=== PATIENT | female | born 1960 | race Two or more races ===

== ENCOUNTER 2022-07-20 07:57 | Emergency (ER) | payer MEDICAID, OTHER ==
[~2022-07-20] VITALS: Ht 157.5 cm; Wt 72.1 kg
[2022-07-20 08:36] VITALS: BP 174/80
[2022-07-20 09:03] LABS: Urine Bacteria NONE SEEN /hpf (None Seen); Urine Blood Negative /uL (Negative); Urine Mucus FEW (None Seen); Urine Specific Gravity 1.021 (1.001-1.035); Urine WBC 1 /hpf (0 - 5)
[2022-07-20] MEDS ORDERED: CEPH-510 PO (09:15)
== END 2022-07-20 09:26 | disposition home or self-care (01) ==
LOC: ER 07:57
DX: N89.8 Other specified noninflammatory disorders of vagina (principal); R82.998 Other abnormal findings in urine
CPT/HCPCS: 81001

== ENCOUNTER 2022-08-08 22:21 | Emergency (ER) | payer MEDICAID ==
[~2022-08-08] VITALS: Ht 157.5 cm; Wt 72.2 kg
[~2022-08-08 22:21] MED LIST: CEPH-510 PO
[2022-08-09 01:35] LABS: Urine Bacteria FEW /hpf (None Seen); Urine Blood Negative /uL (Negative); Urine Mucus FEW (None Seen); Urine Specific Gravity 1.032 (1.001-1.035); Urine WBC 8 /hpf (0 - 5)
[2022-08-09] MEDS ORDERED: METR500T14 PO (01:42)
[2022-08-09] MEDS ORDERED: NITR-87 PO (01:42)
[2022-08-09 02:06] VITALS: BP 175/72
== END 2022-08-09 02:10 | disposition home or self-care (01) ==
LOC: ER 22:21
DX: N76.0 Acute vaginitis (principal); N39.0 Urinary tract infection, site not specified
CPT/HCPCS: 81001; 87210

== ENCOUNTER 2022-08-22 04:54 | Emergency (ER) | payer MEDICAID ==
[~2022-08-22] VITALS: Ht 157.5 cm; Wt 68.2 kg
[~2022-08-22 04:54] MED LIST changes: +METR500T14 PO; +NITR-87 PO
[2022-08-22 05:44] LABS: Basophils # (auto) 0.1 10 ^3/uL (0-0.2); Eosinophils # (auto) 0.1 10 ^3/uL (0-0.8); Monocytes # (auto) 0.6 10 ^3/uL (0-1.3)
[2022-08-22 05:46] LABS: Basophils % (auto) 1.4 % (0.0-2.0); Eosinophils % (auto) 0.7 % (0.0-7.0); Hematocrit 35.7 % (36.0-46.0); Lymphocytes % (auto) 22.9 % (10.0-50.0); Mean Corpuscular Hemoglobin 28.3 pg (28.0-32.0); Mean Corpuscular Hgb Conc. 33.7 g/dL (32.0-36.0); Mean Corpuscular Volume 83.9 fL (80.0-100.0); Monocytes % (auto) 6.6 % (0.0-12.0); Neutrophils % (auto) 68.4 % (37.0-80.0); Nucleated Red Blood Cells % 0.2 %; Red Blood Cells 4.26 10^6/uL (4.0-5.20); White Blood Cell 8.7 10^3/uL (4.4-10.8)
[2022-08-22 06:05] LABS: Albumin 3.5 g/dL (3.4-5.0); BUN/Creatinine Ratio 18.1; Bilirubin, Total 0.2 mg/dL (0.2-1.0); Calcium 8.9 mg/dL (8.5-10.1); Potassium 4.2 mmol/L (3.5-5.1); Total Protein 7.6 g/dL (6.4-8.2)
[2022-08-22 06:14] LABS: Red Cell Distribution Width 20.8 % (11.8-14.3)
[2022-08-22 06:30] LABS: Urine Bacteria FEW /hpf (None Seen); Urine Blood Negative /uL (Negative); Urine Hyaline Cast FEW /lpf (0 - 2); Urine Specific Gravity 1.024 (1.001-1.035); Urine WBC 2 /hpf (0 - 5)
[2022-08-22] MEDS ORDERED: MORPHINE SULFATE INJ 2 MG/ml SYRG IV ONE (06:45)
[2022-08-22] MEDS ORDERED: ONDANSETRON HCL 4 MG/2 ML VIAL IV ONE (06:45)
[2022-08-22 12:00] VITALS: BP 163/83
== END 2022-08-22 13:16 | disposition home or self-care (01) ==
LOC: ER 04:54
DX: K76.0 Fatty (change of) liver, not elsewhere classified (principal); I77.4 Celiac artery compression syndrome; E11.9 Type 2 diabetes mellitus without complications; Z98.890 Other specified postprocedural states
CPT/HCPCS: 36415; 71260; 74177; 76705; 80053; 81001; 83690; 85025; 96374; 96375; 99285; J2270; J2405

== ENCOUNTER 2022-08-25 19:32 | Emergency (ER) | payer MEDICAID ==
[~2022-08-25] VITALS: Ht 157.5 cm; Wt 68.2 kg
[2022-08-25 21:46] LABS: Basophils # (auto) 0.2 10 ^3/uL (0-0.2); Basophils % (auto) 1.8 % (0.0-2.0); Eosinophils # (auto) 0.1 10 ^3/uL (0-0.8); Eosinophils % (auto) 0.6 % (0.0-7.0); Hematocrit 38.5 % (36.0-46.0); Hemoglobin 12.7 g/dL (12.2-16.2); Lymphocytes % (auto) 21.3 % (10.0-50.0); Mean Corpuscular Hemoglobin 27.4 pg (28.0-32.0); Mean Corpuscular Hgb Conc. 32.9 g/dL (32.0-36.0); Mean Corpuscular Volume 83.3 fL (80.0-100.0); Monocytes # (auto) 0.7 10 ^3/uL (0-1.3); Monocytes % (auto) 7.5 % (0.0-12.0); Neutrophils # (auto) 6.5 10 ^3/uL (1.6-8.6); Neutrophils % (auto) 68.8 % (37.0-80.0); Nucleated Red Blood Cells % 0.3 %; Red Blood Cells 4.62 10^6/uL (4.0-5.20); White Blood Cell 9.5 10^3/uL (4.4-10.8)
[2022-08-25 21:47] LABS: Red Cell Distribution Width 20.6 % (11.8-14.3)
[2022-08-25 22:22] LABS: Calcium 9.3 mg/dL (8.5-10.1); Potassium 4.1 mmol/L (3.5-5.1)
[2022-08-25 22:27] LABS: BUN/Creatinine Ratio 31.9; Bilirubin, Total 0.3 mg/dL (0.2-1.0); Total Protein 8.6 g/dL (6.4-8.2)
[2022-08-26 00:05] LABS: Urine Bacteria FEW /hpf (None Seen); Urine Blood Negative /uL (Negative); Urine Mucus FEW (None Seen); Urine Specific Gravity 1.037 (1.001-1.035); Urine WBC 7 /hpf (0 - 5)
[2022-08-26] MEDS ORDERED: cefTRIAXone SOD 500 MG VL IM ONE (00:30)
[2022-08-26] MEDS ORDERED: AZITHROMYCIN 250 MG TAB PO ONE (00:30)
[2022-08-26] MEDS ORDERED: METR500T14 PO (00:33)
[2022-08-26] MEDS ORDERED: FLUC150T38 PO (00:35)
[2022-08-26 01:18] VITALS: BP 123/75
== END 2022-08-26 01:24 | disposition home or self-care (01) ==
LOC: ER 19:35
DX: N39.0 Urinary tract infection, site not specified (principal); N76.0 Acute vaginitis
CPT/HCPCS: 36415; 74176; 80053; 81001; 83690; 85025; 93005; 96372; 99285; J0696

== ENCOUNTER 2022-10-01 22:08 | Emergency (ER) | payer MEDICAID ==
[~2022-10-01] VITALS: Ht 157.5 cm; Wt 68.0 kg
[~2022-10-01 22:08] MED LIST changes: +FLUC150T38 PO
[2022-10-01 23:33] LABS: Urine Bacteria FEW /hpf (None Seen); Urine Blood Negative /uL (Negative); Urine Mucus FEW (None Seen); Urine Specific Gravity 1.027 (1.001-1.035); Urine WBC 8 /hpf (0 - 5)
[2022-10-02 00:07] LABS: Basophils # (auto) 0.1 10 ^3/uL (0-0.2); Basophils % (auto) 1.3 % (0.0-2.0); Eosinophils # (auto) 0 10 ^3/uL (0-0.8); Eosinophils % (auto) 0.5 % (0.0-7.0); Hematocrit 33.3 % (36.0-46.0); Hemoglobin 11.2 g/dL (12.2-16.2); Lymphocytes # (auto) 1.7 10 ^3/uL (0.4-5.4); Lymphocytes % (auto) 17.4 % (10.0-50.0); Mean Corpuscular Hemoglobin 28.1 pg (28.0-32.0); Mean Corpuscular Hgb Conc. 33.8 g/dL (32.0-36.0); Mean Corpuscular Volume 83.1 fL (80.0-100.0); Monocytes # (auto) 0.6 10 ^3/uL (0-1.3); Monocytes % (auto) 6.2 % (0.0-12.0); Neutrophils # (auto) 7.1 10 ^3/uL (1.6-8.6); Neutrophils % (auto) 74.6 % (37.0-80.0); Nucleated Red Blood Cells % 0.1 %; Red Cell Distribution Width 20.4 % (11.8-14.3); White Blood Cell 9.5 10^3/uL (4.4-10.8)
[2022-10-02 00:30] LABS: Albumin 3.4 g/dL (3.4-5.0); BUN/Creatinine Ratio 33.3 (10.0-20.0); Calcium 8.9 mg/dL (8.5-10.1); Potassium 3.5 mmol/L (3.5-5.1)
[2022-10-02 00:39] LABS: Bilirubin, Total 0.4 mg/dL (0.2-1.0)
[2022-10-02] MEDS ORDERED: AZITHROMYCIN 250 MG TAB PO ONE (01:15)
[2022-10-02] MEDS ORDERED: metroNIDAZOLE 500 MG TAB PO ONE (01:15)
[2022-10-02] MEDS ORDERED: cefTRIAXone SOD 1,000 MG VL IM ONE (01:15)
[2022-10-02] MEDS ORDERED: HYDROcodone-ACET 10/325MG TAB PO ONE (03:00)
[2022-10-02] MEDS ORDERED: DOXY-340 PO (04:25)
[2022-10-02] MEDS ORDERED: METR500T PO (04:25)
[2022-10-02 04:40] VITALS: BP 168/90
== END 2022-10-02 04:45 | disposition home or self-care (01) ==
LOC: ER 22:08
DX: N76.0 Acute vaginitis (principal); B96.89 Other specified bacterial agents as the cause of diseases classified elsewhere; N39.0 Urinary tract infection, site not specified; D64.9 Anemia, unspecified; E11.65 Type 2 diabetes mellitus with hyperglycemia; Z90.89 Acquired absence of other organs; Z79.899 Other long term (current) drug therapy
CPT/HCPCS: 36415; 80053; 81001; 85025; 96372; 99284; J0696

== ENCOUNTER 2022-11-03 20:12 | Emergency (ER) | payer MEDICAID ==
[~2022-11-03] VITALS: Ht 157.5 cm; Wt 68.1 kg
[~2022-11-03 20:12] MED LIST changes: +DOXY-340 PO; +METR500T PO
[2022-11-03 22:45] LABS: Urine Bacteria FEW /hpf (None Seen); Urine Blood Negative /uL (Negative); Urine Specific Gravity 1.025 (1.001-1.035); Urine WBC 3 /hpf (0 - 5)
[2022-11-04] MEDS ORDERED: SULF800T7 PO (00:11)
[2022-11-04 01:57] VITALS: BP 157/97
== END 2022-11-04 00:34 | disposition home or self-care (01) ==
LOC: ER 20:17
DX: N39.0 Urinary tract infection, site not specified (principal); E11.9 Type 2 diabetes mellitus without complications; Z88.6 Allergy status to analgesic agent; Z88.8 Allergy status to other drugs, medicaments and biological substances
CPT/HCPCS: 81001

== ENCOUNTER 2022-12-01 22:06 | Inpatient (IN) | payer MEDICAID ==
[~2022-12-01] VITALS: Ht 157.5 cm; Wt 70.8 kg
[~2022-12-01 22:06] MED LIST changes: -DOXY-340 PO; +DOXY1CAP57 PO; +METR-344 PO; -METR500T14 PO; +SULF800T23 PO
[2022-12-01 23:06] LABS: Basophils # (auto) 0.1 10 ^3/uL (0-0.2); Basophils % (auto) 0.7 % (0.0-2.0); Nucleated Red Blood Cells % 0.1 %
[2022-12-01 23:08] LABS: Eosinophils # (auto) 0 10 ^3/uL (0-0.8); Eosinophils % (auto) 0.3 % (0.0-7.0); Hematocrit 35.9 % (36.0-46.0); Hemoglobin 11.6 g/dL (12.2-16.2); Lymphocytes # (auto) 1.6 10 ^3/uL (0.4-5.4); Lymphocytes % (auto) 11.4 % (10.0-50.0); Mean Corpuscular Hemoglobin 27.2 pg (28.0-32.0); Mean Corpuscular Hgb Conc. 32.3 g/dL (32.0-36.0); Mean Corpuscular Volume 84.1 fL (80.0-100.0); Monocytes # (auto) 0.8 10 ^3/uL (0-1.3); Neutrophils # (auto) 11.5 10 ^3/uL (1.6-8.6); Neutrophils % (auto) 81.6 % (37.0-80.0); Red Blood Cells 4.27 10^6/uL (4.0-5.20)
[2022-12-01 23:11] LABS: Red Cell Distribution Width 20.9 % (11.8-14.3)
[2022-12-01 23:21] LABS: Alanine Aminotransferase 21 U/L (13-56); Albumin 3.4 g/dL (3.4-5.0); Anion Gap 10 (5-15); Aspartate Aminotransferase 20 U/L (15-37); BUN/Creatinine Ratio 19.6 (10.0-20.0); Blood Alcohol < 3.0 mg/dL (0-5); Blood Urea Nitrogen 19 mg/dL (7-18); Calcium 8.5 mg/dL (8.5-10.1); Carbon Dioxide 26 mmol/L (21-32); Chloride 100 mmol/L (98-107); GFR African American 75 mL/min; GFR Non-African American 62 mL/min; Glucose 290 mg/dL (74-106); INR 1.03 (0.9-1.15); Magnesium 1.8 mg/dL (1.6-2.6); Partial Thromboplastin Time 32.4 sec (24.6-33.4); Potassium 4.1 mmol/L (3.5-5.1); Sodium 136 mmol/L (136-145)
[2022-12-01 23:24] LABS: Alkaline Phosphatase 89 U/L (45-117); Bilirubin, Total 0.4 mg/dL (0.2-1.0); Lactic Acid w/Reflex 2.6 mmol/L (0.4-2.0); Total Protein 7.7 g/dL (6.4-8.2)
[2022-12-02] MEDS ORDERED: PIPERACILLIN-TAZOB 3.375GM 100 ML IV ONE (03:45)
[2022-12-02] MEDS ORDERED: cloNIDine HCL 0.1 MG TAB PO ONE (03:45)
[2022-12-02] MEDS ORDERED: LACTATED RINGER'S 2,050 ML IV ONE (03:45)
[2022-12-02] MEDS ORDERED: HYDROcodone-ACET 5/325MG TAB PO PRN (04:15)
[2022-12-02] MEDS ORDERED: ACETAMINOPHEN 325 MG TAB PO PRN (04:15)
[2022-12-02] MEDS ORDERED: DOCUSATE SOD 100 MG CAP PO PRN (04:15)
[2022-12-02] MEDS ORDERED: MORPHINE SULFATE INJ 2 MG/ml SYRG IV PRN (04:15)
[2022-12-02] MEDS ORDERED: DEXTROSE (50%) 50ML SYRG IV PRN (04:15)
[2022-12-02] MEDS ORDERED: ONDANSETRON HCL 4 MG/2 ML VIAL IV PRN (04:15)
[2022-12-02] MEDS ORDERED: NITROGLYCERIN 0.4 MG SL TAB SL PRN (04:15)
[2022-12-02] MEDS ORDERED: SODIUM CHLORIDE 0.9% 500 ML IV ONE (04:45)
[2022-12-02] MEDS ORDERED: FLEET ENEMA(ADULT) 135 ML PR ONE (05:15)
[2022-12-02 07:02] LABS: Urine Bacteria FEW /hpf (None Seen); Urine Blood Negative /uL (Negative); Urine Specific Gravity 1.015 (1.001-1.035); Urine WBC 37 /hpf (0 - 5)
[2022-12-02] MEDS: SODIUM CHLORIDE 0.9% 1,000 ML IV SCH ×2 (07:08→20:52)
[2022-12-02] MEDS: InsuLIN REG 1unit/0.01ml Soln (100units/ml) SC SCH ×4 (08:00→20:00)
[2022-12-02] MEDS: ACCU-CHEK COMFORT CURVE STRIP VI SCH ×4 (08:00→20:43)
[2022-12-02 08:06] LABS: Basophils # (auto) 0.1 10 ^3/uL (0-0.2); Basophils % (auto) 0.9 % (0.0-2.0); Eosinophils # (auto) 0 10 ^3/uL (0-0.8); Eosinophils % (auto) 0.3 % (0.0-7.0); Hematocrit 30.9 % (36.0-46.0); Hemoglobin 10.1 g/dL (12.2-16.2); Lymphocytes # (auto) 1.6 10 ^3/uL (0.4-5.4); Lymphocytes % (auto) 14.9 % (10.0-50.0); Mean Corpuscular Hemoglobin 27.3 pg (28.0-32.0); Mean Corpuscular Hgb Conc. 32.8 g/dL (32.0-36.0); Mean Corpuscular Volume 83.1 fL (80.0-100.0); Monocytes # (auto) 0.7 10 ^3/uL (0-1.3); Neutrophils % (auto) 76.9 % (37.0-80.0); Red Blood Cells 3.71 10^6/uL (4.0-5.20); White Blood Cell 10.4 10^3/uL (4.4-10.8)
[2022-12-02 08:08] LABS: Red Cell Distribution Width 20.6 % (11.8-14.3)
[2022-12-02 08:12] LABS: Albumin 2.8 g/dL (3.4-5.0); Calcium 7.9 mg/dL (8.5-10.1); Potassium 3.6 mmol/L (3.5-5.1)
[2022-12-02 08:16] LABS: BUN/Creatinine Ratio 18.3 (10.0-20.0); Bilirubin, Total 0.4 mg/dL (0.2-1.0); Total Protein 6.6 g/dL (6.4-8.2)
[2022-12-02] MEDS ORDERED: LORazepam 2MG/ML-1ML VIAL IV PRN (09:30)
[2022-12-02] MEDS ORDERED: ENOXAPARIN SOD 40 MG/0.4 ML SYRINGE SC SCH (10:00)
[2022-12-02 10:08] LABS: % Iron Saturation 27.1 % (15-50)
[2022-12-02] MEDS: amLODIPine BESYLATE 5 MG TAB PO SCH (11:13)
[2022-12-02] MEDS ORDERED: PIPERACILLIN-TAZOB 3.375GM 100 ML IV SCH (12:00)
[2022-12-02] MEDS ORDERED: cefTRIAXone 1GM/50ML D5W 50 ML IV ONE (16:30)
[2022-12-03] MEDS: ACCU-CHEK COMFORT CURVE STRIP VI SCH ×7 (00:14→23:31)
[2022-12-03] MEDS: InsuLIN REG 1unit/0.01ml Soln (100units/ml) SC SCH ×7 (04:00→23:40)
[2022-12-03 05:46] LABS: Basophils # (auto) 0.1 10 ^3/uL (0-0.2); Basophils % (auto) 1.1 % (0.0-2.0); Eosinophils # (auto) 0.1 10 ^3/uL (0-0.8); Nucleated Red Blood Cells % 0.2 %
[2022-12-03 05:49] LABS: Eosinophils % (auto) 0.7 % (0.0-7.0); Hematocrit 31.5 % (36.0-46.0); Hemoglobin 10.7 g/dL (12.2-16.2); Lymphocytes % (auto) 23.4 % (10.0-50.0); Mean Corpuscular Hemoglobin 27.9 pg (28.0-32.0); Mean Corpuscular Hgb Conc. 33.8 g/dL (32.0-36.0); Mean Corpuscular Volume 82.6 fL (80.0-100.0); Monocytes # (auto) 0.7 10 ^3/uL (0-1.3); Monocytes % (auto) 7.5 % (0.0-12.0); Neutrophils # (auto) 5.9 10 ^3/uL (1.6-8.6); Neutrophils % (auto) 67.3 % (37.0-80.0); Red Blood Cells 3.81 10^6/uL (4.0-5.20); White Blood Cell 8.7 10^3/uL (4.4-10.8)
[2022-12-03 06:04] LABS: Red Cell Distribution Width 20.8 % (11.8-14.3)
[2022-12-03 06:15] LABS: Potassium 3.6 mmol/L (3.5-5.1)
[2022-12-03 06:27] LABS: Albumin 2.9 g/dL (3.4-5.0); BUN/Creatinine Ratio 22.1 (10.0-20.0); Bilirubin, Total 0.5 mg/dL (0.2-1.0); Calcium 8.5 mg/dL (8.5-10.1); Total Protein 6.9 g/dL (6.4-8.2)
[2022-12-03] MEDS: cefTRIAXone 1GM/50ML D5W 50 ML IV SCH (08:45)
[2022-12-03] MEDS: amLODIPine BESYLATE 5 MG TAB PO SCH (08:45)
[2022-12-03] MEDS: SODIUM CHLORIDE 0.9% 1,000 ML IV SCH (13:51)
[2022-12-03 21:02] VITALS: BP 172/74
[2022-12-03] MEDS: hydrALAZINE HCL 20 MG/ML VL IV PRN (21:17)
[2022-12-03 22:00] VITALS: BP 174/72
[2022-12-04] MEDS: ACCU-CHEK COMFORT CURVE STRIP VI SCH ×5 (04:17→19:34)
[2022-12-04] MEDS: InsuLIN REG 1unit/0.01ml Soln (100units/ml) SC SCH ×5 (04:19→19:41)
[2022-12-04 05:00] VITALS: BP 152/68
[2022-12-04] MEDS: SUCRALFATE 1 GM/10 ML ORAL SUSP PO SCH ×2 (06:16→18:40)
[2022-12-04] MEDS: SODIUM CHLORIDE 0.9% 1,000 ML IV SCH ×2 (06:16→22:05)
[2022-12-04] MEDS: cefTRIAXone 1GM/50ML D5W 50 ML IV SCH (08:38)
[2022-12-04] MEDS: PANTOPRAZOLE 40 MG/10 ML VIAL INJ IV SCH ×2 (08:38→19:39)
[2022-12-04] MEDS: amLODIPine BESYLATE 5 MG TAB PO SCH (08:42)
[2022-12-04 09:48] VITALS: BP 134/74
[2022-12-04 12:53] VITALS: BP 164/73
[2022-12-04] MEDS ORDERED: MIDAZOLAM HCL 2MG/2ML 2ml VIAL (1mg/ml) ONE (15:15)
[2022-12-04] MEDS ORDERED: ONDANSETRON HCL 4 MG/2 ML VIAL IV PRN (15:30)
[2022-12-04 16:58] VITALS: BP 149/71
[2022-12-04] MEDS ORDERED: PROPOFOL 10 MG/ML 20 ML IV ONE (17:01)
[2022-12-04 20:00] VITALS: BP 146/72
[2022-12-04 22:00] VITALS: BP 164/81
[2022-12-04] MEDS: hydrALAZINE HCL 20 MG/ML VL IV PRN (22:03)
[2022-12-05 05:00] VITALS: BP 148/66
[2022-12-05] MEDS: SUCRALFATE 1 GM/10 ML ORAL SUSP PO SCH ×2 (05:23→18:17)
[2022-12-05] MEDS: ACCU-CHEK COMFORT CURVE STRIP VI SCH ×5 (05:25→16:00)
[2022-12-05] MEDS: InsuLIN REG 1unit/0.01ml Soln (100units/ml) SC SCH ×4 (05:33→16:00)
[2022-12-05 09:00] VITALS: BP 139/49
[2022-12-05] MEDS: PANTOPRAZOLE 40 MG/10 ML VIAL INJ IV SCH (09:17)
[2022-12-05] MEDS: cefTRIAXone 1GM/50ML D5W 50 ML IV SCH (09:17)
[2022-12-05] MEDS: amLODIPine BESYLATE 5 MG TAB PO SCH (09:17)
[2022-12-05] MEDS ORDERED: PANT40TA2 PO (10:43)
[2022-12-05] MEDS ORDERED: AML5T PO (10:43)
[2022-12-05] MEDS ORDERED: LEVO500T91 PO (10:44)
[2022-12-05 12:47] VITALS: BP 145/63
[2022-12-05 15:10] VITALS: BP 139/49
[2022-12-05] MEDS: SODIUM CHLORIDE 0.9% 1,000 ML IV SCH (15:35)
[2022-12-05 16:43] VITALS: BP 126/78
== END 2022-12-05 22:00 | disposition home or self-care (01) | DRG 241 ==
LOC: ER 22:06 → TELE 12-02 04:22 → TELE-WESTW 12-03 20:54
PROVIDERS: ADMIT Nurse Practitioner Family; ATTEND Internal Medicine
PROC: 0DB68ZX Excision of Stomach, Via Natural or Artificial Opening Endoscopic, Diagnostic (ICD-10-PCS; 2022-12-04)
PROC: 0DB98ZX Excision of Duodenum, Via Natural or Artificial Opening Endoscopic, Diagnostic (ICD-10-PCS; principal; 2022-12-04 15:03)
DX: K29.90 Gastroduodenitis, unspecified, without bleeding (principal); G93.41 Metabolic encephalopathy; E87.20 Acidosis, unspecified; D75.839 Thrombocytosis, unspecified; E11.65 Type 2 diabetes mellitus with hyperglycemia; D64.9 Anemia, unspecified; E86.0 Dehydration; N39.0 Urinary tract infection, site not specified; I16.0 Hypertensive urgency; R26.81 Unsteadiness on feet; R19.5 Other fecal abnormalities; K44.9 Diaphragmatic hernia without obstruction or gangrene; Z79.899 Other long term (current) drug therapy; Z82.49 Family history of ischemic heart disease and other diseases of the circulatory system; Z83.3 Family history of diabetes mellitus
CPT/HCPCS: 36415; 70450; 70551; 71045; 76700; 80053; 80320; 81001; 82010; 82962; 83036; 83540; 83550; 83605; 83735; 84484; 85025; 85610; 85730; 87040; 87086; 93005; 95819; 96365; 97110; 97116; 97163; 99291; C9113; G0378; J0696; J1815; J2250; J2543; J2704

== ENCOUNTER 2023-02-05 15:39 | Inpatient (IN) | payer MEDICAID ==
[~2023-02-05] VITALS: Ht 157.5 cm; Wt 88.8 kg
[~2023-02-05 15:39] MED LIST changes: +AML5T PO; -CEPH-510 PO; -DOXY1CAP57 PO; -FLUC150T38 PO; +LEVO500T91 PO; -METR-344 PO; -METR500T PO; -NITR-87 PO; +PANT40TA2 PO; -SULF800T23 PO
[2023-02-05] MEDS ORDERED: SODIUM CHLORIDE 0.9% 1,000 ML IV ONE (16:15)
[2023-02-05] MEDS ORDERED: ONDANSETRON HCL 4 MG/2 ML VIAL IV PRN (18:45)
[2023-02-05] MEDS ORDERED: DOCUSATE SOD 100 MG CAP PO PRN (18:45)
[2023-02-05 19:05] LABS: Chloride 106 mmol/L (98-107); Potassium 4.8 mmol/L (3.5-5.1); Sodium 141 mmol/L (136-145)
[2023-02-05 19:09] LABS: Calcium 9.9 mg/dL (8.5-10.1); Carbon Dioxide 23.5 mmol/L (20-30)
[2023-02-05 19:14] LABS: Alkaline Phosphatase 90 U/L (46-116); BUN/Creatinine Ratio 24.6 (10.0-20.0); Blood Urea Nitrogen 17 mg/dL (9-23); Glucose 108 mg/dL (74-106)
[2023-02-05 19:16] LABS: Alanine Aminotransferase 19 U/L (7-40); Albumin 4.8 g/dL (3.2-4.8); Aspartate Aminotransferase 25 U/L (13-40); Bilirubin, Total 0.5 mg/dL (0.2-1.0); Total Protein 8.3 g/dL (5.7-8.2)
[2023-02-05 19:21] LABS: Basophils # (auto) 0.1 10 ^3/uL (0-0.2); Basophils % (auto) 0.8 % (0.0-2.0); Eosinophils # (auto) 0 10 ^3/uL (0-0.8); Eosinophils % (auto) 0.4 % (0.0-7.0); Hematocrit 38.9 % (36.0-46.0); Hemoglobin 12.8 g/dL (12.2-16.2); Lymphocytes # (auto) 1.7 10 ^3/uL (0.4-5.4); Mean Corpuscular Hemoglobin 27.3 pg (28.0-32.0); Mean Corpuscular Hgb Conc. 32.9 g/dL (32.0-36.0); Monocytes # (auto) 0.7 10 ^3/uL (0-1.3); Monocytes % (auto) 8.4 % (0.0-12.0); Neutrophils # (auto) 6.1 10 ^3/uL (1.6-8.6); Neutrophils % (auto) 70.4 % (37.0-80.0); Nucleated Red Blood Cells % 0.1 %; Red Blood Cells 4.69 10^6/uL (4.0-5.20); White Blood Cell 8.6 10^3/uL (4.4-10.8)
[2023-02-05 19:22] LABS: Red Cell Distribution Width 20.7 % (11.8-14.3)
[2023-02-05 20:20] LABS: Urine Bacteria FEW /hpf (None Seen); Urine Blood Negative /uL (Negative); Urine Clarity HAZY (Clear); Urine Color Colorless (Yellow); Urine Protein, UAD TRACE (Negative); Urine Specific Gravity 1.014 (1.001-1.035); Urine Urobilinogen Normal (Negative); Urine WBC 10 /hpf (0 - 5); Urine pH 6.5 (5.0-8.0)
[2023-02-05 20:23] LABS: Anion Gap 11 (5-15)
[2023-02-05 20:28] LABS: Amphetamine Screen, Urine Neg (NEGATIVE); Barbiturate Scree,Urine Neg (NEGATIVE); Benzodiazephine Screen, Urine Neg (NEGATIVE); Cocaine Screen, Urine Neg (NEGATIVE)
[2023-02-05 20:29] LABS: Opiate Scree,Urine Neg (NEGATIVE)
[2023-02-05 20:30] LABS: Cannabinoid Screen, Urine Neg (NEGATIVE); Phencyclidine Screen, Urine Neg (NEGATIVE)
[2023-02-05] MEDS: SODIUM CHLORIDE 0.9% 1,000 ML IV SCH (23:37)
[2023-02-05 23:40] VITALS: O2SAT 96
[2023-02-06] VITALS (7 sets, daily range): BP systolic 139–159; BP diastolic 61–69; PULSE 66–80; RESP 16–20; TEMP 98.2–98.8; O2SAT 96–100
[2023-02-06] MEDS ORDERED: cefTRIAXone 1GM/50ML D5W 50 ML IV ONE
[2023-02-06] MEDS: hydrALAZINE HCL 20 MG/ML VL IV PRN ×2 (00:23→08:13)
[2023-02-06] MEDS: SODIUM CHLORIDE 0.9% 1,000 ML IV SCH ×3 (03:05→17:13)
[2023-02-06] MEDS ORDERED: cloNIDine HCL 0.1 MG TAB PO ONE (03:29)
[2023-02-06 05:07] LABS: Basophils # (auto) 0.1 10 ^3/uL (0-0.2); Eosinophils # (auto) 0 10 ^3/uL (0-0.8); Lymphocytes # (auto) 1.6 10 ^3/uL (0.4-5.4); Mean Corpuscular Hemoglobin 27.4 pg (28.0-32.0)
[2023-02-06 05:09] LABS: Basophils % (auto) 0.7 % (0.0-2.0); Eosinophils % (auto) 0.4 % (0.0-7.0); Hematocrit 34.7 % (36.0-46.0); Hemoglobin 11.6 g/dL (12.2-16.2); Mean Corpuscular Hgb Conc. 33.5 g/dL (32.0-36.0); Monocytes # (auto) 0.7 10 ^3/uL (0-1.3); Monocytes % (auto) 8.5 % (0.0-12.0); Neutrophils # (auto) 5.8 10 ^3/uL (1.6-8.6); Neutrophils % (auto) 70.4 % (37.0-80.0); Nucleated Red Blood Cells % 0.3 %; Red Blood Cells 4.23 10^6/uL (4.0-5.20); White Blood Cell 8.2 10^3/uL (4.4-10.8)
[2023-02-06 05:12] LABS: Red Cell Distribution Width 20.4 % (11.8-14.3)
[2023-02-06 05:23] LABS: Alanine Aminotransferase 15 U/L (7-40); Albumin 4.3 g/dL (3.2-4.8); Alkaline Phosphatase 72 U/L (46-116); Anion Gap 8.8 (5-15); Aspartate Aminotransferase 17 U/L (13-40); BUN/Creatinine Ratio 16.7 (10.0-20.0); Bilirubin, Total 0.5 mg/dL (0.2-1.0); Blood Urea Nitrogen 11 mg/dL (9-23); Calcium 9.2 mg/dL (8.7-10.4); Carbon Dioxide 25.2 mmol/L (20-30); Chloride 105 mmol/L (98-107); Glucose 102 mg/dL (74-106); Potassium 3.2 mmol/L (3.5-5.1); Sodium 139 mmol/L (136-145); Total Protein 7.6 g/dL (5.7-8.2)
[2023-02-06] MEDS: MORPHINE SULFATE INJ 2 MG/ml SYRG IV PRN ×2 (08:13→14:38)
[2023-02-06] MEDS: PANTOPRAZOLE 40 MG/10 ML VIAL INJ IV SCH (10:16)
[2023-02-06] MEDS: cefTRIAXone 1GM/50ML D5W 50 ML IV SCH (10:16)
[2023-02-06] MEDS: amLODIPine BESYLATE 5 MG TAB PO SCH (10:18)
[2023-02-06] MEDS ORDERED: POTASSIUM CHL 20 Meq TABLET PO ONE (11:00)
[2023-02-06] MEDS: LISINOPRIL 10 MG TAB PO SCH (12:15)
[2023-02-07] MEDS: SODIUM CHLORIDE 0.9% 1,000 ML IV SCH ×2 (03:08→12:25)
[2023-02-07 05:00] VITALS: BP 127/56; PULSE 60; RESP 16; TEMP 97.5; O2SAT 97
[2023-02-07 05:57] LABS: Chloride 106 mmol/L (98-107); Potassium 4.2 mmol/L (3.5-5.1); Sodium 137 mmol/L (136-145)
[2023-02-07 05:58] LABS: Anion Gap 6.2 (5-15); Calcium 8.9 mg/dL (8.7-10.4); Carbon Dioxide 24.8 mmol/L (20-30)
[2023-02-07 06:03] LABS: BUN/Creatinine Ratio 9.5 (10.0-20.0); Blood Urea Nitrogen 7 mg/dL (9-23); Glucose 119 mg/dL (74-106)
[2023-02-07 06:06] LABS: RPR Non Reactive (Non Reactive)
[2023-02-07 06:12] LABS: Basophils # (auto) 0.1 10 ^3/uL (0-0.2); Eosinophils # (auto) 0 10 ^3/uL (0-0.8); Hemoglobin 11.4 g/dL (12.2-16.2); Lymphocytes # (auto) 1.4 10 ^3/uL (0.4-5.4); Monocytes # (auto) 0.8 10 ^3/uL (0-1.3); Neutrophils # (auto) 7.5 10 ^3/uL (1.6-8.6)
[2023-02-07 06:15] LABS: Basophils % (auto) 0.9 % (0.0-2.0); Eosinophils % (auto) 0.4 % (0.0-7.0); Hematocrit 34.6 % (36.0-46.0); Lymphocytes % (auto) 14.3 % (10.0-50.0); Mean Corpuscular Hemoglobin 27.3 pg (28.0-32.0); Mean Corpuscular Hgb Conc. 32.9 g/dL (32.0-36.0); Monocytes % (auto) 8.6 % (0.0-12.0); Neutrophils % (auto) 75.8 % (37.0-80.0); Red Blood Cells 4.16 10^6/uL (4.0-5.20); White Blood Cell 9.8 10^3/uL (4.4-10.8)
[2023-02-07 06:35] LABS: Red Cell Distribution Width 20.9 % (11.8-14.3)
[2023-02-07 08:00] VITALS: BP 172/68; PULSE 72; RESP 20; TEMP 98; O2SAT 99
[2023-02-07] MEDS ORDERED: NITR-52 PO (09:35)
[2023-02-07] MEDS ORDERED: LISI10TA34 PO (09:35)
[2023-02-07] MEDS: PANTOPRAZOLE 40 MG/10 ML VIAL INJ IV SCH (09:37)
[2023-02-07] MEDS: amLODIPine BESYLATE 5 MG TAB PO SCH (09:38)
[2023-02-07] MEDS: LISINOPRIL 10 MG TAB PO SCH (09:38)
[2023-02-07] MEDS: cefTRIAXone 1GM/50ML D5W 50 ML IV SCH (09:38)
[2023-02-07 12:00] VITALS: BP 154/78; PULSE 77; RESP 20; TEMP 98.1; O2SAT 99
[2023-02-07 13:09] VITALS: BP 154/78; PULSE 72; RESP 20; TEMP 98; O2SAT 99
[2023-02-08] MEDS ORDERED: CIPR-173 PO (11:45)
[2023-02-08] MEDS ORDERED: DICY10CA PO (11:45)
[2023-02-10 11:11] LABS: Hepatitis B Surface Antigen Negative (Negative)
[2023-02-10 11:33] LABS: Hepatitis C Antibody Negative (Negative)
== END 2023-02-07 15:45 | disposition home or self-care (01) | DRG 463 ==
LOC: ER 15:39 → EDBD 15:39 → OVERFLOW 18:45 → CENTRAL 02-06 16:21
PROVIDERS: ADMIT Internal Medicine Pulmonary Disease; ATTEND Internal Medicine
DX: N30.90 Cystitis, unspecified without hematuria (principal); E11.9 Type 2 diabetes mellitus without complications; I10 Essential (primary) hypertension; E87.6 Hypokalemia; K29.50 Unspecified chronic gastritis without bleeding; K26.7 Chronic duodenal ulcer without hemorrhage or perforation
CPT/HCPCS: 36415; 70450; 74176; 80048; 80053; 80307; 80320; 81001; 82607; 82962; 83605; 84484; 85025; 86592; 86803; 87086; 87340; 96360; C9113; G0378; J0696

== ENCOUNTER 2023-02-08 08:47 | Emergency (ER) | payer MEDICAID ==
[~2023-02-08] VITALS: Ht 157.5 cm; Wt 68.1 kg
[~2023-02-08 08:47] MED LIST changes: -LEVO500T91 PO; +LISI10TA34 PO; +NITR-52 PO
[2023-02-08 09:50] VITALS: BP 140/80; PULSE 86; RESP 18; O2SAT 99
[2023-02-08] MEDS ORDERED: DICYCLOMINE HCL 10 MG CAP PO ONE (10:15)
[2023-02-08 10:33] LABS: Urine Bacteria FEW /hpf (None Seen); Urine Blood Negative /uL (Negative); Urine Clarity HAZY (Clear); Urine Color Yellow (Yellow); Urine Mucus FEW (None Seen); Urine Protein, UAD 1+ (Negative); Urine Urobilinogen Normal (Negative); Urine WBC 6 /hpf (0 - 5)
[2023-02-08 10:45] LABS: Basophils # (auto) 0.1 10 ^3/uL (0-0.2); Eosinophils # (auto) 0 10 ^3/uL (0-0.8); Eosinophils % (auto) 0.4 % (0.0-7.0); Hemoglobin 12.2 g/dL (12.2-16.2); Lymphocytes # (auto) 1.1 10 ^3/uL (0.4-5.4); Mean Corpuscular Volume 82.5 fL (80.0-100.0); White Blood Cell 8.7 10^3/uL (4.4-10.8)
[2023-02-08 10:46] LABS: Basophils % (auto) 0.8 % (0.0-2.0); Hematocrit 36.6 % (36.0-46.0); Lymphocytes % (auto) 12.6 % (10.0-50.0); Mean Corpuscular Hemoglobin 27.4 pg (28.0-32.0); Mean Corpuscular Hgb Conc. 33.2 g/dL (32.0-36.0); Monocytes # (auto) 0.6 10 ^3/uL (0-1.3); Monocytes % (auto) 7.3 % (0.0-12.0); Neutrophils # (auto) 6.9 10 ^3/uL (1.6-8.6); Neutrophils % (auto) 78.9 % (37.0-80.0); Nucleated Red Blood Cells % 0.1 %; Red Blood Cells 4.44 10^6/uL (4.0-5.20); Red Cell Distribution Width 21.2 % (11.8-14.3)
[2023-02-08 10:53] LABS: Amphetamine Screen, Urine Neg (NEGATIVE); Barbiturate Scree,Urine Neg (NEGATIVE); Benzodiazephine Screen, Urine Neg (NEGATIVE); Cocaine Screen, Urine Neg (NEGATIVE); Opiate Scree,Urine Neg (NEGATIVE); Phencyclidine Screen, Urine Neg (NEGATIVE)
[2023-02-08 10:54] LABS: Cannabinoid Screen, Urine Neg (NEGATIVE)
[2023-02-08 11:00] LABS: Alanine Aminotransferase 16 U/L (7-40); Albumin 4.4 g/dL (3.2-4.8); Alkaline Phosphatase 85 U/L (46-116); Anion Gap 6.8 (5-15); Aspartate Aminotransferase 15 U/L (13-40); BUN/Creatinine Ratio 10.7 (10.0-20.0); Bilirubin, Total 0.5 mg/dL (0.2-1.0); Blood Urea Nitrogen 8 mg/dL (9-23); Calcium 9.7 mg/dL (8.5-10.1); Carbon Dioxide 26.2 mmol/L (20-30); Chloride 106 mmol/L (98-107); Glucose 114 mg/dL (74-106); Magnesium 1.9 mg/dL (1.6-2.6); Potassium 4.7 mmol/L (3.5-5.1); Sodium 139 mmol/L (136-145); Total Protein 7.6 g/dL (5.7-8.2)
[2023-02-08 11:10] LABS: INR 1.08 (0.9-1.15); Prothrombin Time 11.3 sec (9.3-11.8)
[2023-02-08] MEDS ORDERED: CIPR-173 PO (11:45)
[2023-02-08] MEDS ORDERED: DICY10CA PO (11:45)
== END 2023-02-08 11:43 | disposition home or self-care (01) ==
LOC: ER 08:47
DX: N39.0 Urinary tract infection, site not specified (principal); E11.9 Type 2 diabetes mellitus without complications; Z79.2 Long term (current) use of antibiotics; Z79.899 Other long term (current) drug therapy
CPT/HCPCS: 36415; 71045; 74176; 80053; 80307; 81001; 82962; 83690; 83735; 83880; 84484; 85025; 85610; 85730; 93005; 99285; J0500

== ENCOUNTER 2023-02-10 20:01 | Inpatient (IN) | payer MEDICAID ==
[~2023-02-10] VITALS: Ht 162.6 cm; Wt 66.8 kg
[~2023-02-10 20:01] MED LIST changes: +CIPR-173 PO; +DICY10CA PO
[2023-02-10 21:00] VITALS: PULSE 107; RESP 20; O2SAT 97
[2023-02-10 21:34] LABS: Basophils # (auto) 0.1 10 ^3/uL (0-0.2); Basophils % (auto) 0.6 % (0.0-2.0); Eosinophils # (auto) 0 10 ^3/uL (0-0.8); Lymphocytes # (auto) 1.3 10 ^3/uL (0.4-5.4); Monocytes # (auto) 0.8 10 ^3/uL (0-1.3)
[2023-02-10 21:36] LABS: Eosinophils % (auto) 0.1 % (0.0-7.0); Hematocrit 35.5 % (36.0-46.0); Hemoglobin 11.6 g/dL (12.2-16.2); Lymphocytes % (auto) 12.9 % (10.0-50.0); Mean Corpuscular Hemoglobin 27.2 pg (28.0-32.0); Mean Corpuscular Hgb Conc. 32.7 g/dL (32.0-36.0); Mean Corpuscular Volume 83.2 fL (80.0-100.0); Neutrophils # (auto) 7.8 10 ^3/uL (1.6-8.6); Neutrophils % (auto) 78.4 % (37.0-80.0); Nucleated Red Blood Cells % 0.2 %; Red Blood Cells 4.27 10^6/uL (4.0-5.20)
[2023-02-10 21:41] LABS: Red Cell Distribution Width 20.5 % (11.8-14.3)
[2023-02-10 21:52] LABS: Albumin 4.4 g/dL (3.2-4.8); Alkaline Phosphatase 81 U/L (46-116); Anion Gap 7.7 (5-15); Aspartate Aminotransferase 13 U/L (13-40); BUN/Creatinine Ratio 15.7 (10.0-20.0); Bilirubin, Total 0.5 mg/dL (0.2-1.0); Blood Alcohol < 3.0 mg/dL (<10); Blood Urea Nitrogen 13 mg/dL (9-23); Carbon Dioxide 23.3 mmol/L (20-30); Chloride 104 mmol/L (98-107); Glucose 219 mg/dL (74-106); Lipase 46 U/L (12-53); Potassium 3.8 mmol/L (3.5-5.1); Sodium 135 mmol/L (136-145); Total Protein 7.7 g/dL (5.7-8.2)
[2023-02-10 21:54] LABS: Alanine Aminotransferase 9 U/L (7-40)
[2023-02-10 22:58] LABS: Urine Bacteria FEW /hpf (None Seen); Urine Blood Negative /uL (Negative); Urine Clarity HAZY (Clear); Urine Color Yellow (Yellow); Urine Protein, UAD TRACE (Negative); Urine Specific Gravity 1.027 (1.001-1.035); Urine Urobilinogen Normal (Negative); Urine WBC 35 /hpf (0 - 5)
[2023-02-10] MEDS ORDERED: ACETAMINOPHEN 325 MG TAB PO PRN (23:00)
[2023-02-10] MEDS ORDERED: DEXTROSE (50%) 50ML SYRG IV PRN (23:00)
[2023-02-10] MEDS ORDERED: LABETALOL HCL 5 MG/ML 4ML SYRINGE IV PRN (23:00)
[2023-02-10 23:07] LABS: Amphetamine Screen, Urine Neg (NEGATIVE); Barbiturate Scree,Urine Neg (NEGATIVE); Benzodiazephine Screen, Urine Neg (NEGATIVE); Cannabinoid Screen, Urine Neg (NEGATIVE); Cocaine Screen, Urine Neg (NEGATIVE); Opiate Scree,Urine Neg (NEGATIVE); Phencyclidine Screen, Urine Neg (NEGATIVE)
[2023-02-10] MEDS: SODIUM CHLORIDE 0.9% 1,000 ML IV SCH (23:35)
[2023-02-11 00:20] LABS: Erythrocyte Sedimentation Rate 64 mm/hr (0-20)
[2023-02-11] MEDS: SODIUM CHLORIDE 0.9% 1,000 ML IV SCH (05:40)
[2023-02-11 06:37] LABS: Basophils # (auto) 0.1 10 ^3/uL (0-0.2); Eosinophils # (auto) 0 10 ^3/uL (0-0.8); Eosinophils % (auto) 0.3 % (0.0-7.0); Hematocrit 31.7 % (36.0-46.0); Hemoglobin 10.6 g/dL (12.2-16.2); Lymphocytes # (auto) 1.2 10 ^3/uL (0.4-5.4); Monocytes # (auto) 0.6 10 ^3/uL (0-1.3); Red Blood Cells 3.87 10^6/uL (4.0-5.20)
[2023-02-11 06:40] LABS: Basophils % (auto) 0.7 % (0.0-2.0); Lymphocytes % (auto) 15.3 % (10.0-50.0); Mean Corpuscular Hemoglobin 27.5 pg (28.0-32.0); Mean Corpuscular Hgb Conc. 33.6 g/dL (32.0-36.0); Mean Corpuscular Volume 81.8 fL (80.0-100.0); Monocytes % (auto) 7.9 % (0.0-12.0); Neutrophils % (auto) 75.8 % (37.0-80.0); White Blood Cell 7.9 10^3/uL (4.4-10.8)
[2023-02-11 06:49] LABS: Red Cell Distribution Width 20.3 % (11.8-14.3)
[2023-02-11] MEDS: InsuLIN REG 1unit/0.01ml Soln (100units/ml) SC SCH ×3 (07:00→21:38)
[2023-02-11] MEDS: ACCU-CHEK COMFORT CURVE STRIP VI SCH ×3 (07:00→21:28)
[2023-02-11 07:10] LABS: Alanine Aminotransferase 11 U/L (7-40); Albumin 3.9 g/dL (3.2-4.8); Alkaline Phosphatase 73 U/L (46-116); Anion Gap 8.3 (5-15); Aspartate Aminotransferase 13 U/L (13-40); BUN/Creatinine Ratio 16.9 (10.0-20.0); Bilirubin, Total 0.5 mg/dL (0.2-1.0); Blood Urea Nitrogen 13 mg/dL (9-23); Calcium 8.6 mg/dL (8.5-10.1); Carbon Dioxide 24.7 mmol/L (20-30); Chloride 104 mmol/L (98-107); Glucose 170 mg/dL (74-106); Potassium 3.4 mmol/L (3.5-5.1); Sodium 137 mmol/L (136-145)
[2023-02-11] MEDS: amLODIPine BESYLATE 5 MG TAB PO SCH (11:43)
[2023-02-11] MEDS: LISINOPRIL 10 MG TAB PO SCH (11:44)
[2023-02-11] MEDS: PANTOPRAZOLE 40 MG TAB PO SCH (11:46)
[2023-02-11 13:00] VITALS: BP 153/89; PULSE 73; RESP 17; TEMP 98.1; O2SAT 97
[2023-02-11] MEDS ORDERED: DEXTROSE (50%) 50ML SYRG IV PRN (14:00)
[2023-02-11] MEDS ORDERED: DOCUSATE SOD 100 MG CAP PO PRN (14:00)
[2023-02-11] MEDS ORDERED: ONDANSETRON HCL 4 MG/2 ML VIAL IV PRN (14:00)
[2023-02-11] MEDS ORDERED: traMADol HCL 50 MG TAB PO PRN (14:00)
[2023-02-11] MEDS ORDERED: cefTRIAXone 1GM/50ML D5W 50 ML IV ONE (15:22)
[2023-02-11] MEDS: cefTRIAXone 1GM/50ML D5W 50 ML IV SCH (15:33)
[2023-02-11 16:58] VITALS: BP 151/75; PULSE 74; RESP 18; TEMP 97.3; O2SAT 99
[2023-02-11] MEDS ORDERED: hydrALAZINE HCL 20 MG/ML VL IV PRN (21:15)
[2023-02-11] MEDS: LACTULOSE 20Gm/30ML SOLN PO SCH (21:27)
[2023-02-11 22:00] VITALS: BP 125/52; PULSE 75; RESP 18; TEMP 98.2; O2SAT 98
[2023-02-11 23:30] VITALS: BP 125/52; PULSE 75; RESP 18; TEMP 98.2; O2SAT 98
[2023-02-12 05:00] VITALS: BP 119/48; PULSE 63; RESP 18; TEMP 98.5; O2SAT 96
[2023-02-12] MEDS: ACCU-CHEK COMFORT CURVE STRIP VI SCH ×4 (06:05→21:15)
[2023-02-12] MEDS: InsuLIN REG 1unit/0.01ml Soln (100units/ml) SC SCH ×4 (06:11→21:17)
[2023-02-12 09:00] VITALS: BP 147/65; PULSE 79; RESP 17; TEMP 98.3; O2SAT 98
[2023-02-12] MEDS: LACTULOSE 20Gm/30ML SOLN PO SCH ×2 (10:25→10:28)
[2023-02-12] MEDS: PANTOPRAZOLE 40 MG TAB PO SCH (10:26)
[2023-02-12] MEDS: amLODIPine BESYLATE 5 MG TAB PO SCH (10:26)
[2023-02-12] MEDS: LISINOPRIL 10 MG TAB PO SCH (10:27)
[2023-02-12] MEDS: cefTRIAXone 1GM/50ML D5W 50 ML IV SCH (10:27)
[2023-02-12 13:00] VITALS: BP 141/57; PULSE 74; RESP 20; TEMP 98.5; O2SAT 97
[2023-02-12 17:00] VITALS: BP 122/53; PULSE 76; RESP 18; TEMP 100.3; O2SAT 97
[2023-02-12 20:00] VITALS: PULSE 73
[2023-02-12 22:00] VITALS: BP 157/65; PULSE 73; RESP 16; TEMP 98.1; O2SAT 96
[2023-02-13 05:00] VITALS: BP 142/58; PULSE 66; RESP 16; TEMP 97.5; O2SAT 98
[2023-02-13] MEDS: InsuLIN REG 1unit/0.01ml Soln (100units/ml) SC SCH ×3 (06:00→17:00)
[2023-02-13] MEDS: ACCU-CHEK COMFORT CURVE STRIP VI SCH ×3 (06:00→17:00)
[2023-02-13 09:21] VITALS: BP 147/68; PULSE 70; RESP 16; TEMP 98.5; O2SAT 98
[2023-02-13] MEDS ORDERED: FLUCONAZOLE 200MG/100ML 100 ML IV ONE (09:45)
[2023-02-13] MEDS: cefTRIAXone 1GM/50ML D5W 50 ML IV SCH (09:57)
[2023-02-13] MEDS: amLODIPine BESYLATE 5 MG TAB PO SCH (09:58)
[2023-02-13] MEDS: LISINOPRIL 10 MG TAB PO SCH (09:58)
[2023-02-13] MEDS: PANTOPRAZOLE 40 MG TAB PO SCH (09:59)
[2023-02-13] MEDS: LACTULOSE 20Gm/30ML SOLN PO SCH (09:59)
[2023-02-13] MEDS ORDERED: FLUC200T PO (12:42)
[2023-02-13 13:02] VITALS: BP 129/81; PULSE 67; RESP 17; TEMP 98.4; O2SAT 97
== END 2023-02-13 22:20 | disposition home or self-care (01) | DRG 199 ==
LOC: EDBD 20:01 → ER 20:17 → OVERFLOW 22:54 → EAST 02-11 12:00
PROVIDERS: ADMIT Nurse Practitioner Family; ATTEND Nurse Practitioner Acute Care
DX: I16.0 Hypertensive urgency (principal); G93.41 Metabolic encephalopathy; F05 Delirium due to known physiological condition; N30.90 Cystitis, unspecified without hematuria; E11.65 Type 2 diabetes mellitus with hyperglycemia; D64.9 Anemia, unspecified; I10 Essential (primary) hypertension
CPT/HCPCS: 36415; 70450; 71045; 80053; 80307; 80320; 81001; 82140; 82962; 83605; 83690; 84443; 84484; 85025; 85652; 87086; 93886; 96361; 96374; G0378; J0696; J1450; J1815; J3490

== ENCOUNTER 2023-04-22 12:09 | Emergency (ER) | payer MEDICAID ==
[~2023-04-22] VITALS: Ht 157.5 cm; Wt 62.8 kg
[~2023-04-22 12:09] MED LIST changes: +FLUC200T PO
[2023-04-22 13:02] LABS: Urine Bacteria MANY /hpf (None Seen); Urine Blood 1+ /uL (Negative); Urine Clarity Clear (Clear); Urine Color Yellow (Yellow); Urine Mucus FEW (None Seen); Urine Protein, UAD 1+ (Negative); Urine Specific Gravity 1.017 (1.001-1.035); Urine Urobilinogen Normal (Negative); Urine WBC 43 /hpf (0 - 5)
[2023-04-22 15:15] VITALS: BP 137/93; PULSE 81; RESP 16; O2SAT 100
[2023-04-22] MEDS ORDERED: CEPH250C PO (16:25)
[2023-04-22] MEDS ORDERED: FLUC150T38 PO (16:25)
[2023-04-22] MEDS ORDERED: cefTRIAXone SOD 1,000 MG VL IM ONE (16:30)
[2023-04-22] MEDS ORDERED: IBUPROFEN 600 MG TAB PO ONE (16:30)
[2023-04-22] MEDS ORDERED: FLUCONAZOLE 100 MG TAB PO ONE (16:30)
[2023-04-22 16:34] VITALS: TEMP 98.9
== END 2023-04-22 16:31 | disposition home or self-care (01) ==
LOC: ER 12:09
DX: N39.0 Urinary tract infection, site not specified (principal)
CPT/HCPCS: 81001; 96372; 99283; J0696

== ENCOUNTER 2023-05-16 02:47 | Inpatient (IN) | payer MEDICAID ==
[~2023-05-16] VITALS: Ht 157.5 cm; Wt 66.6 kg
[~2023-05-16 02:47] MED LIST changes: +CEPH250C PO; +FLUC150T38 PO
[2023-05-16 03:44] LABS: Eosinophils # (auto) 0.1 10 ^3/uL (0-0.8); Hemoglobin 12.2 g/dL (12.2-16.2); Nucleated Red Blood Cells % 0.2 %
[2023-05-16 03:46] LABS: Basophils # (auto) 0.1 10 ^3/uL (0-0.2); Basophils % (auto) 0.9 % (0.0-2.0); Eosinophils % (auto) 0.4 % (0.0-7.0); Hematocrit 37.5 % (36.0-46.0); Lymphocytes # (auto) 1.7 10 ^3/uL (0.4-5.4); Lymphocytes % (auto) 13.1 % (10.0-50.0); Mean Corpuscular Hemoglobin 26.9 pg (28.0-32.0); Mean Corpuscular Hgb Conc. 32.4 g/dL (32.0-36.0); Mean Corpuscular Volume 82.8 fL (80.0-100.0); Monocytes # (auto) 0.7 10 ^3/uL (0-1.3); Monocytes % (auto) 5.6 % (0.0-12.0); Neutrophils # (auto) 10.3 10 ^3/uL (1.6-8.6); Red Blood Cells 4.53 10^6/uL (4.0-5.20); White Blood Cell 12.9 10^3/uL (4.4-10.8)
[2023-05-16 03:59] LABS: Alanine Aminotransferase 14 U/L (7-40); Albumin 4.8 g/dL (3.2-4.8); Alkaline Phosphatase 92 U/L (46-116); Anion Gap 11 (5-15); Aspartate Aminotransferase 16 U/L (13-40); Bilirubin, Total 0.5 mg/dL (0.2-1.0); Blood Alcohol < 3.0 mg/dL (<10); Blood Urea Nitrogen 18 mg/dL (9-23); Calcium 9.3 mg/dL (8.7-10.4); Carbon Dioxide 24 mmol/L (20-30); Chloride 99 mmol/L (98-107); Glucose 224 mg/dL (74-106); Magnesium 1.9 mg/dL (1.6-2.6); Potassium 3.5 mmol/L (3.5-5.1); Sodium 134 mmol/L (136-145); Total Protein 8.3 g/dL (5.7-8.2)
[2023-05-16 04:10] VITALS: PULSE 85; RESP 16; O2SAT 97
[2023-05-16 04:26] LABS: Lactic Acid w/Reflex 3.3 mmol/L (0.4-2.0)
[2023-05-16] MEDS ORDERED: LORazepam 2MG/ML-1ML VIAL IV ONE (04:30)
[2023-05-16] MEDS ORDERED: SODIUM CHLORIDE 0.9% 1,850 ML IV ONE (04:30)
[2023-05-16 04:42] LABS: Urine Bacteria MOD /hpf (None Seen); Urine Blood TRACE /uL (Negative); Urine Clarity CLOUDY (Clear); Urine Color Yellow (Yellow); Urine Hyaline Cast MOD /lpf (0 - 2); Urine Mucus FEW (None Seen); Urine Protein, UAD 2+ (Negative); Urine Specific Gravity 1.028 (1.001-1.035); Urine WBC 368 /hpf (0 - 5); Urine WBC Clumps PRESENT /hpf (None Seen); Urine pH 5.5 (5.0-8.0)
[2023-05-16 04:46] LABS: Amphetamine Screen, Urine Neg (NEGATIVE); Benzodiazephine Screen, Urine Neg (NEGATIVE)
[2023-05-16 04:47] LABS: Barbiturate Scree,Urine Neg (NEGATIVE); Cannabinoid Screen, Urine Neg (NEGATIVE); Cocaine Screen, Urine Neg (NEGATIVE); Opiate Scree,Urine Neg (NEGATIVE); Phencyclidine Screen, Urine Neg (NEGATIVE)
[2023-05-16 05:13] LABS: INR 1.09 (0.9-1.15); Partial Thromboplastin Time 36.8 SEC (24.5-34.5); Prothrombin Time 11.4 sec (9.3-11.8)
[2023-05-16] MEDS ORDERED: PIPERACILLIN-TAZOB 3.375GM 100 ML IV SCH (06:00)
[2023-05-16] MEDS ORDERED: MORPHINE SULFATE INJ 2 MG/ml SYRG IV PRN ×2 (06:30)
[2023-05-16] MEDS ORDERED: LISINOPRIL 10 MG TAB PO ONE (06:30)
[2023-05-16] MEDS ORDERED: amLODIPine BESYLATE 5 MG TAB PO ONE (06:30)
[2023-05-16] MEDS ORDERED: ONDANSETRON HCL 4 MG/2 ML VIAL IV PRN (06:30)
[2023-05-16] MEDS ORDERED: HYDROcodone-ACET 5/325MG TAB PO PRN (06:30)
[2023-05-16] MEDS ORDERED: NITROGLYCERIN 0.4 MG SL TAB SL PRN (06:30)
[2023-05-16] MEDS ORDERED: ACETAMINOPHEN 325 MG TAB PO PRN (06:30)
[2023-05-16] MEDS: hydrALAZINE HCL 20 MG/ML VL IV PRN ×2 (07:08→18:12)
[2023-05-16 08:00] VITALS: PULSE 100; RESP 24; O2SAT 100
[2023-05-16 09:19] LABS: Folate (Folic Acid) 21.9 ng/mL (>5.38)
[2023-05-16] MEDS: SODIUM CHLORIDE 0.9% 1,000 ML IV SCH ×2 (09:49→20:05)
[2023-05-16] MEDS: cefTRIAXone 1GM/50ML D5W 50 ML IV SCH (09:50)
[2023-05-16] MEDS: amLODIPine BESYLATE 5 MG TAB PO SCH (09:51)
[2023-05-16] MEDS: AZITHROMYCIN 500MG/ 250ML 250 ML IV SCH (10:52)
[2023-05-16 20:00] VITALS: PULSE 110; PULSE 84; RESP 19; RESP 20; O2SAT 98
[2023-05-16 22:03] VITALS: BP_SYST 152; BP_SYST 153; BP_DIAS 67; BP_DIAS 78; PULSE 115; PULSE 78; RESP 18; TEMP 97.9; TEMP 98.5; O2SAT 95; O2SAT 96
[2023-05-16 22:30] VITALS: PULSE 98; RESP 17; O2SAT 98
[2023-05-17] MEDS: hydrALAZINE HCL 20 MG/ML VL IV PRN (05:33)
[2023-05-17 06:35] LABS: Anion Gap 8 (5-15); Carbon Dioxide 25 mmol/L (20-30); Chloride 105 mmol/L (98-107); Potassium 3.7 mmol/L (3.5-5.1); Sodium 138 mmol/L (136-145)
[2023-05-17 06:36] LABS: Calcium 8.8 mg/dL (8.7-10.4)
[2023-05-17 06:41] LABS: BUN/Creatinine Ratio 19.8 (10.0-20.0); Blood Urea Nitrogen 16 mg/dL (9-23); Glucose 131 mg/dL (74-106)
[2023-05-17 06:42] LABS: Basophils # (auto) 0.1 10 ^3/uL (0-0.2); Eosinophils # (auto) 0 10 ^3/uL (0-0.8); Hemoglobin 10.5 g/dL (12.2-16.2); Mean Corpuscular Hemoglobin 27.1 pg (28.0-32.0); Mean Corpuscular Hgb Conc. 32.9 g/dL (32.0-36.0)
[2023-05-17 06:45] LABS: Basophils % (auto) 0.9 % (0.0-2.0); Eosinophils % (auto) 0.4 % (0.0-7.0); Hematocrit 31.9 % (36.0-46.0); Lymphocytes # (auto) 1.6 10 ^3/uL (0.4-5.4); Lymphocytes % (auto) 16.8 % (10.0-50.0); Mean Corpuscular Volume 82.2 fL (80.0-100.0); Monocytes # (auto) 0.7 10 ^3/uL (0-1.3); Monocytes % (auto) 7.7 % (0.0-12.0); Neutrophils # (auto) 7.1 10 ^3/uL (1.6-8.6); Neutrophils % (auto) 74.2 % (37.0-80.0); Nucleated Red Blood Cells % 0.2 %; Red Blood Cells 3.88 10^6/uL (4.0-5.20); White Blood Cell 9.6 10^3/uL (4.4-10.8)
[2023-05-17 07:03] LABS: Red Cell Distribution Width 20.6 % (11.8-14.3)
[2023-05-17 08:00] VITALS: PULSE 81; RESP 18; O2SAT 98
[2023-05-17] MEDS: amLODIPine BESYLATE 5 MG TAB PO SCH (08:39)
[2023-05-17] MEDS: cefTRIAXone 1GM/50ML D5W 50 ML IV SCH (08:40)
[2023-05-17 09:00] VITALS: BP 158/62; PULSE 84; RESP 18; TEMP 98.3; O2SAT 99
[2023-05-17] MEDS: SODIUM CHLORIDE 0.9% 1,000 ML IV SCH (10:17)
[2023-05-17] MEDS: AZITHROMYCIN 500MG/ 250ML 250 ML IV SCH (10:17)
[2023-05-17 11:05] VITALS: BP 133/77; PULSE 81
[2023-05-17 13:00] VITALS: BP 139/77; PULSE 81; RESP 18; TEMP 98; O2SAT 99
[2023-05-17] MEDS ORDERED: DEXTROSE (50%) 50ML SYRG IV PRN (14:00)
[2023-05-17 16:59] VITALS: BP 128/64; PULSE 84; RESP 20; TEMP 98.8; O2SAT 98
[2023-05-17] MEDS ORDERED: InsuLIN REG 1unit/0.01ml Soln (100units/ml) SC SCH (18:00)
[2023-05-17] MEDS ORDERED: ACCU-CHEK COMFORT CURVE STRIP VI SCH (18:00)
[2023-05-17 20:00] VITALS: PULSE 84; RESP 20; O2SAT 98
[2023-05-18] VITALS (8 sets, daily range): BP systolic 129–155; BP diastolic 63–69; PULSE 67–87; RESP 17–20; TEMP 98–98.9; O2SAT 95–99
[2023-05-18 08:58] LABS: Basophils # (auto) 0.1 10 ^3/uL (0-0.2); Eosinophils # (auto) 0.1 10 ^3/uL (0-0.8); Hemoglobin 11.2 g/dL (12.2-16.2); Monocytes # (auto) 0.7 10 ^3/uL (0-1.3); Red Cell Distribution Width 20.3 % (11.8-14.3)
[2023-05-18 09:00] LABS: Basophils % (auto) 0.8 % (0.0-2.0); Eosinophils % (auto) 1.1 % (0.0-7.0); Hematocrit 33.9 % (36.0-46.0); Lymphocytes # (auto) 1.6 10 ^3/uL (0.4-5.4); Lymphocytes % (auto) 19.1 % (10.0-50.0); Mean Corpuscular Hemoglobin 27.4 pg (28.0-32.0); Mean Corpuscular Hgb Conc. 33.1 g/dL (32.0-36.0); Mean Corpuscular Volume 82.8 fL (80.0-100.0); Monocytes % (auto) 7.6 % (0.0-12.0); Neutrophils # (auto) 6.1 10 ^3/uL (1.6-8.6); Neutrophils % (auto) 71.4 % (37.0-80.0); Nucleated Red Blood Cells % 0.2 %; White Blood Cell 8.6 10^3/uL (4.4-10.8)
[2023-05-18] MEDS: amLODIPine BESYLATE 5 MG TAB PO SCH (09:34)
[2023-05-18] MEDS: cefTRIAXone 1GM/50ML D5W 50 ML IV SCH (09:35)
[2023-05-18] MEDS: AZITHROMYCIN 500MG/ 250ML 250 ML IV SCH (11:28)
[2023-05-19 05:00] VITALS: BP 148/73; PULSE 72; RESP 16; TEMP 97.5; O2SAT 95
[2023-05-19 05:06] LABS: Anion Gap 6 (5-15); Carbon Dioxide 27 mmol/L (20-30); Chloride 103 mmol/L (98-107); Potassium 4.1 mmol/L (3.5-5.1); Sodium 136 mmol/L (136-145)
[2023-05-19 05:07] LABS: Basophils # (auto) 0.1 10 ^3/uL (0-0.2); Calcium 9.2 mg/dL (8.7-10.4); Eosinophils # (auto) 0.1 10 ^3/uL (0-0.8); Eosinophils % (auto) 1.3 % (0.0-7.0); Nucleated Red Blood Cells % 0.2 %
[2023-05-19 05:08] LABS: Hematocrit 33.8 % (36.0-46.0); Hemoglobin 11.2 g/dL (12.2-16.2); Lymphocytes % (auto) 22.9 % (10.0-50.0); Mean Corpuscular Volume 81.8 fL (80.0-100.0); Monocytes # (auto) 0.6 10 ^3/uL (0-1.3); Monocytes % (auto) 6.8 % (0.0-12.0); Neutrophils # (auto) 5.9 10 ^3/uL (1.6-8.6); Red Blood Cells 4.13 10^6/uL (4.0-5.20); White Blood Cell 8.6 10^3/uL (4.4-10.8)
[2023-05-19 05:12] LABS: BUN/Creatinine Ratio 25.3 (10.0-20.0); Blood Urea Nitrogen 21 mg/dL (9-23); Glucose 118 mg/dL (74-106)
[2023-05-19 05:17] LABS: Red Cell Distribution Width 20.1 % (11.8-14.3)
[2023-05-19 08:00] VITALS: PULSE 78; RESP 20; O2SAT 98
[2023-05-19 08:05] VITALS: BP 154/64; PULSE 78; RESP 18; TEMP 97.6; O2SAT 99
[2023-05-19] MEDS: cefTRIAXone 1GM/50ML D5W 50 ML IV SCH (09:14)
[2023-05-19] MEDS: AZITHROMYCIN 500MG/ 250ML 250 ML IV SCH (09:14)
[2023-05-19] MEDS: amLODIPine BESYLATE 5 MG TAB PO SCH (09:15)
[2023-05-19 12:05] VITALS: BP 159/74; PULSE 75; RESP 19; TEMP 97.7; O2SAT 98
[2023-05-19 16:05] VITALS: BP 145/66; PULSE 82; RESP 19; TEMP 98.5; O2SAT 96
[2023-05-19 22:26] VITALS: BP 150/67; PULSE 86; RESP 16; TEMP 98.3; O2SAT 86
[2023-05-20 05:03] VITALS: BP 129/56; PULSE 73; RESP 16; TEMP 98; O2SAT 96
[2023-05-20 08:00] VITALS: PULSE 76; RESP 20; O2SAT 97
[2023-05-20 09:00] VITALS: BP_SYST 110; BP_SYST 136; BP_DIAS 47; BP_DIAS 64; PULSE 68; PULSE 74; RESP 17; RESP 18; TEMP 98.3; TEMP 98.6; O2SAT 96; O2SAT 98
[2023-05-20] MEDS: cefTRIAXone 1GM/50ML D5W 50 ML IV SCH (09:13)
[2023-05-20] MEDS: amLODIPine BESYLATE 5 MG TAB PO SCH (09:14)
[2023-05-20 10:35] VITALS: BP 136/64
[2023-05-20 12:48] VITALS: BP 152/74; PULSE 89; RESP 17; TEMP 98.5; O2SAT 95
== END 2023-05-20 13:10 | disposition home or self-care (01) | DRG 720 ==
LOC: ER 02:47 → TELE 06:20 → WEST WING 21:40 → TELE-WESTW 21:45 → WEST WING 23:36
PROVIDERS: ADMIT Internal Medicine; ATTEND Student in an Organized Health Care Education/Training Program
DX: A41.9 Sepsis, unspecified organism (principal); N17.0 Acute kidney failure with tubular necrosis; G92.8 Other toxic encephalopathy; N39.0 Urinary tract infection, site not specified; F03.93 Unspecified dementia, unspecified severity, with mood disturbance; I10 Essential (primary) hypertension; E87.1 Hypo-osmolality and hyponatremia; D75.839 Thrombocytosis, unspecified; F20.9 Schizophrenia, unspecified
CPT/HCPCS: 36415; 70450; 71045; 80048; 80053; 80307; 80320; 81001; 82140; 82607; 82668; 82728; 82746; 82962; 83036; 83540; 83550; 83605; 83735; 84132; 84443; 84484; 85025; 85610; 85730; 87040; 87081; 87086; 93005; 96361; 96365; 96367; 96375; 97163; G0378; J0696; J1815